=== PATIENT | male | born 1980 | race Two or more races ===

== ENCOUNTER 2022-05-05 20:22 | Inpatient (IN) | payer OTHER ==
[~2022-05-05] VITALS: Ht 177.8 cm; Wt 92.7 kg
[2022-05-05] MEDS ORDERED: SODIUM CHLORIDE 0.9% 1,000 ML IVB ONE (21:30)
[2022-05-05 22:50] LABS: Eosinophils # (auto) 0 10 ^3/uL (0-0.8); Nucleated Red Blood Cells % 0.1 %
[2022-05-05 22:52] LABS: Basophils # (auto) 0.1 10 ^3/uL (0-0.2); Basophils % (auto) 0.9 % (0.0-2.0); Eosinophils % (auto) 0.3 % (0.0-7.0); Hematocrit 48.6 % (41.0-53.0); Lymphocytes # (auto) 1.9 10 ^3/uL (0.4-5.4); Lymphocytes % (auto) 11.3 % (10.0-50.0); Mean Corpuscular Hgb Conc. 32.9 g/dL (32.0-36.0); Mean Corpuscular Volume 81.9 fL (80.0-100.0); Monocytes # (auto) 1.5 10 ^3/uL (0-1.3); Neutrophils # (auto) 13.2 10 ^3/uL (1.6-8.6); Neutrophils % (auto) 78.5 % (37.0-80.0); Red Blood Cells 5.94 10^6/uL (4.5-5.90); Red Cell Distribution Width 13.6 % (11.8-14.3); White Blood Cell 16.8 10^3/uL (4.4-10.8)
[2022-05-05 23:09] LABS: Albumin 3.9 g/dL (3.4-5.0); BUN/Creatinine Ratio 18.6; Calcium 9.2 mg/dL (8.5-10.1); Potassium 3.9 mmol/L (3.5-5.1)
[2022-05-05 23:11] LABS: Bilirubin, Total 1.5 mg/dL (0.2-1.0); Total Protein 8.7 g/dL (6.4-8.2)
[2022-05-05] MEDS ORDERED: metroNIDAZOLE 500MG/100ML 100 ML IV ONE (23:15)
[2022-05-05] MEDS ORDERED: cefTRIAXone 1GM/50ML D5W 50 ML IV ONE (23:15)
[2022-05-05 23:30] LABS: Urine Bacteria NONE SEEN /hpf (None Seen); Urine Blood Negative /uL (Negative); Urine Mucus MODERATE (None Seen); Urine WBC 1 /hpf (0 - 3)
[2022-05-06] MEDS ORDERED: MORPHINE SULFATE 4 MG/ML SYR/VIAL IV ONE
[2022-05-06] MEDS ORDERED: ONDANSETRON HCL 4 MG/2 ML VIAL IV ONE
[2022-05-06] MEDS: SODIUM CHLORIDE 0.9% 1,000 ML IV SCH ×2 (02:09→14:36)
[2022-05-06] MEDS: ONDANSETRON HCL 4 MG/2 ML VIAL IV PRN ×2 (04:31→22:12)
[2022-05-06] MEDS: MORPHINE SULFATE INJ 2 MG/ml SYRG IV PRN ×2 (04:31→08:29)
[2022-05-06] MEDS: metroNIDAZOLE 500MG/100ML 100 ML IV SCH ×2 (06:37→14:23)
[2022-05-06] MEDS ORDERED: HYDROcodone-ACET 7.5/325MG TAB PO PRN (07:00)
[2022-05-06] MEDS ORDERED: ACETAMINOPHEN 500 MG TAB PO ONE (08:15)
[2022-05-06] MEDS: PANTOPRAZOLE 40 MG/10 ML VIAL INJ IV SCH (10:06)
[2022-05-06] MEDS: cefTRIAXone 1GM/50ML D5W 50 ML IV SCH ×2 (12:14→22:45)
[2022-05-06] MEDS: HYDROmorphone HCL 2 MG/ML VL/or syr IV PRN ×3 (12:17→22:13)
[2022-05-06 13:42] LABS: INR 1.11 (0.9-1.15); Partial Thromboplastin Time 30.5 sec (24.6-33.4)
[2022-05-06] MEDS ORDERED: CARBAMIDE PEROXIDE 6.5% OTIC(EAR) SOLN 15ML LEFT EAR ONE (16:00)
[2022-05-06] MEDS ORDERED: ACETAMINOPHEN 650 MG RECT SUPP PR PRN (20:45)
[2022-05-06] MEDS ORDERED: ACETAMINOPHEN IV 1000 MG/100ML (10MG/ML) IV ONE (20:45)
[2022-05-06] MEDS: CARBAMIDE PEROXIDE 6.5% OTIC(EAR) SOLN 15ML LEFT EAR SCH (21:40)
[2022-05-06 22:00] VITALS: BP 149/96
[2022-05-06] MEDS ORDERED: cefTRIAXone 1GM/50ML D5W 50 ML IV SCH (22:00)
[2022-05-07] MEDS: metroNIDAZOLE 500MG/100ML 100 ML IV SCH ×3 (00:02→14:30)
[2022-05-07 05:00] VITALS: BP 138/87
[2022-05-07 05:26] LABS: Basophils # (auto) 0.1 10 ^3/uL (0-0.2); Basophils % (auto) 0.7 % (0.0-2.0); Eosinophils # (auto) 0 10 ^3/uL (0-0.8); Eosinophils % (auto) 0.2 % (0.0-7.0); Hematocrit 43.6 % (41.0-53.0); Hemoglobin 14.3 g/dL (13.5-17.5); Lymphocytes % (auto) 6.3 % (10.0-50.0); Mean Corpuscular Hemoglobin 27.2 pg (28.0-32.0); Mean Corpuscular Hgb Conc. 32.8 g/dL (32.0-36.0); Mean Corpuscular Volume 83.1 fL (80.0-100.0); Monocytes # (auto) 1.1 10 ^3/uL (0-1.3); Monocytes % (auto) 7.3 % (0.0-12.0); Neutrophils # (auto) 12.9 10 ^3/uL (1.6-8.6); Neutrophils % (auto) 85.5 % (37.0-80.0); Red Blood Cells 5.25 10^6/uL (4.5-5.90); Red Cell Distribution Width 13.6 % (11.8-14.3); White Blood Cell 15.1 10^3/uL (4.4-10.8)
[2022-05-07 05:42] LABS: Albumin 3.1 g/dL (3.4-5.0); Calcium 8.4 mg/dL (8.5-10.1)
[2022-05-07 05:46] LABS: Bilirubin, Total 1.2 mg/dL (0.2-1.0); Total Protein 7.1 g/dL (6.4-8.2)
[2022-05-07] MEDS: SODIUM CHLORIDE 0.9% 1,000 ML IV SCH ×2 (06:08→17:00)
[2022-05-07] MEDS: ONDANSETRON HCL 4 MG/2 ML VIAL IV PRN ×4 (06:19→19:00)
[2022-05-07] MEDS: HYDROmorphone HCL 2 MG/ML VL/or syr IV PRN ×4 (06:20→19:00)
[2022-05-07 09:00] VITALS: BP 131/83
[2022-05-07] MEDS ORDERED: IOHEXOL 300 MG/ML 100ML BOTTLE IJ ONE (09:00)
[2022-05-07] MEDS: PANTOPRAZOLE 40 MG/10 ML VIAL INJ IV SCH (09:35)
[2022-05-07] MEDS: cefTRIAXone 1GM/50ML D5W 50 ML IV SCH (09:35)
[2022-05-07] MEDS: CARBAMIDE PEROXIDE 6.5% OTIC(EAR) SOLN 15ML LEFT EAR SCH (09:41)
[2022-05-07 13:13] VITALS: BP 135/96
[2022-05-07 16:19] VITALS: BP 149/80
[2022-05-07 20:05] VITALS: BP 154/94
[2022-05-07 20:30] VITALS: BP 154/94
== END 2022-05-07 21:05 | disposition short-term general hospital (02) | DRG 720 ==
LOC: ER 20:27 → OVERFLOW 05-06 01:01 → WEST WING 05-06 17:33
PROVIDERS: ADMIT Nurse Practitioner; ATTEND Internal Medicine Nephrology
DX: A41.9 Sepsis, unspecified organism (principal); K57.20 Diverticulitis of large intestine with perforation and abscess without bleeding; I70.0 Atherosclerosis of aorta; K80.20 Calculus of gallbladder without cholecystitis without obstruction; Z20.822 Contact with and (suspected) exposure to COVID-19
CPT/HCPCS: 36415; 71045; 74018; 74176; 74177; 80053; 81001; 83605; 83690; 85025; 85610; 85730; 87040; 96361; 96365; 96366; 96367; 96375; 96376; 99291; C9113; G0378; J0131; J0696; J2405; J3490